=== PATIENT | male | born 1990 | race Caucasian/White ===

== ENCOUNTER 2020-02-06 16:22 | Observation (INO) ==
[~2020-02-06 16:22] MED LIST: Aminoglycoside Consult 1 EACH MC ONE
[2020-02-06] MEDS ORDERED: Vancomycin 1,500 MG/265 ML IV.SOLN IVPB ONE (16:46)
[2020-02-06] MEDS ORDERED: Piperacillin/Tazobactam 3.375 GM in Water for inj. (sterile) 20 ML IVP ONE (16:46)
[2020-02-06] MEDS ORDERED: Isovue-370 500 ML BOTTLE IVP ONE (16:48)
[2020-02-06] MEDS: 0.9 % Sodium Chloride 1,000 ML IVC SCH ×5 (17:18→22:35)
[2020-02-06 17:28] LABS: Hematocrit 35.8 % (37.5-50.1); Hemoglobin 11.8 g/dL (12.9-16.9); Mean Corpuscular Hemoglobin 28.3 pg (28.0-33.3); Mean Corpuscular Volume 85.9 fL (83.0-100.0); Platelet Count 191 K/mcL (140-400); Red Blood Count 4.17 M/mcL (4.19-5.50); Red Cell Distribution Width 13.3 % (11.5-14.5); White Blood Count 19.7 K/mcL (4.3-11.1)
[2020-02-06 17:48] LABS: Lymphocytes # 1.2 K/mcL (0.6-4.6); Neutrophils # 16.6 K/mcL (1.6-8.9)
[2020-02-06 17:52] LABS: Platelet Estimate Normal (Normal)
[2020-02-06 17:54] LABS: Alanine Aminotransferase 19 Units/L (7-52); Albumin 3.7 g/dL (3.5-5.7); Albumin/Globulin Ratio 0.8 (1.1-2.2); Alkaline Phosphatase 109 Units/L (34-104); Aspartate Amino Transferase 25 Units/L (13-39); BUN/Creatinine Ratio 11 (6-26); Bilirubin,Direct 0.2 mg/dL (0.0-0.2); Bilirubin,Indirect 0.3 mg/dL (0.0-1.0); Bilirubin,Total 0.5 mg/dL (0.3-1.0); Blood Urea Nitrogen 55 mg/dL (6-20); Calcium 8.7 mg/dL (8.6-10.3); Carbon Dioxide 22 mEq/L (23-29); Chloride 93 mEq/L (98-107); Globulin 4.5 g/dL (2.4-3.5); Glucose 161 mg/dL (70-105); Magnesium 1.8 mg/dL (1.6-2.6); Osmolality,Calculated 281 (280-300); Potassium 3.8 mEq/L (3.5-5.1); Sodium 126 mEq/L (136-145); Total Protein 8.2 g/dL (6.4-8.9); eGFR For African Americans 17 (> 60); eGFR For Non-African Americans 14 (> 60)
[2020-02-06 17:55] LABS: C-Reactive Protein > 300 mg/L (Less than 10)
[2020-02-06] MEDS ORDERED: Clindamycin 900 MG/50 ML 900 MG/50 ML IV.SOLN IVPB ONE (19:25)
[2020-02-06] MEDS ORDERED: *HR* Promethazine 25 MG/ML VIAL IVP PRN (21:01)
[2020-02-06] MEDS ORDERED: Acetaminophen 325 MG TABLET PO PRN (21:01)
[2020-02-06] MEDS ORDERED: Naloxone 0.4 MG/ML INJ IVP PRN (21:01)
[2020-02-06 21:55] LABS: Complement C3 127 mg/dL (87-200)
[2020-02-06 22:01] LABS: Albumin 3.6 g/dL (3.5-5.7); Albumin/Globulin Ratio 0.9 (1.1-2.2); Bilirubin,Direct 0.3 mg/dL (0.0-0.2); Bilirubin,Indirect 0.3 mg/dL (0.0-1.0); Bilirubin,Total 0.6 mg/dL (0.3-1.0); Total Protein 7.6 g/dL (6.4-8.9)
[2020-02-06] MEDS: *HR* Heparin 5,000 UNIT/ML VIAL SQ SCH (22:37)
[2020-02-06 22:55] LABS: Bilirubin,Urine Negative (Negative); Blood,Urine Small (Negative); Clarity,Urine Cloudy (Clear); Color,Urine Yellow (Yellow); Glucose,Urine (UA) Normal (Normal); Ketones,Urine Negative (Negative); Leukocyte Esterase,Urine Small (Negative); Nitrite,Urine Negative (Negative); Potassium,Urine 31.8 mEq/L; Protein,Urine 100 mg/dL (Neg-Trace); Specific Gravity,Urine 1.018 (1.010-1.025); Urobilinogen,Urine Normal (Normal)
[2020-02-06 22:58] LABS: Bacteria,Urine None Seen per hpf (None-Few); Hyaline Casts,Urine None Seen per lpf (None-Few); Squamous Epithelial Cell,Urine Many per lpf (None-Few); WBC,Urine 15-30 per hpf (0-3)
[2020-02-06 23:06] LABS: Amphetamine Screen,Urine Positive ng/mL (Cutoff=1000); Barbiturate Screen,Urine Negative ng/mL (Cutoff=200); Benzodiazepines Screen,Urine Negative ng/mL (Cutoff=200); Cannabinoid Screen,Urine Negative ng/mL (Cutoff = 50); Cocaine Screen,Urine Negative ng/mL (Cutoff= 300); Opiate Screen,Urine Positive ng/mL (Cutoff=300); Phencyclidine Screen,Urine Negative ng/mL (Cutoff=25)
[2020-02-06 23:08] LABS: Estimated Average Glucose 111 mg/dl
[2020-02-07] MEDS: Piperacillin/Tazobactam 3.375 GM in 0.9 % Sodium Chloride Mini Bag 100 ML IVPB SCH ×2 (00:42→08:35)
[2020-02-07] MEDS: Levalbuterol 1 PUFF INHALER IH PRN ×2 (01:08→07:47)
[2020-02-07] MEDS ORDERED: 0.9 % Sodium Chloride 1,000 ML IV ONE (04:21)
[2020-02-07] MEDS: *HR* Heparin 5,000 UNIT/ML VIAL SQ SCH (05:02)
[2020-02-07] MEDS: 0.9 % Sodium Chloride 1,000 ML IVC SCH (08:48)
[2020-02-07] MEDS ORDERED: Nicotine 14 MG PATCH.TD24 TD SCH (09:00)
[2020-02-07] MEDS ORDERED: DAPTOmycin 500 MG in 0.9 % Sodium Chloride 100 ML IVPB SCH (09:00)
[2020-02-07] MEDS ORDERED: *HR* OxyCODONE/APAP 10/325 TABLET PO PRN (09:07)
[2020-02-07 11:00] VITALS: BP 118/58
[2020-02-09 07:20] LABS: Serine Protease-3 Antibody 3 AU/mL (0-19)
[2020-02-09 07:20] LABS: ANA IgG by ELISA NONE DETECTED (None Detected)
== END 2020-02-07 12:22 | disposition left against medical advice (07) ==
LOC: 2ANU 16:22 → EMEROOARM 16:22 → SUATTDRO 19:12 → 2ANU 19:38
PROVIDERS: ADMIT Student in an Organized Health Care Education/Training Program; ATTEND Pharmacist